=== PATIENT | female | born 1965 | race Caucasian/White ===

== ENCOUNTER → 2024-08-19 13:47 | Outpatient (REF) | payer BC, SELFPAY | LOC: HWRCS 13:47 | PROVIDERS: ATTENDING PHYSICIAN Internal Medicine Cardiovascular Disease; FAMILY PHYSICIAN Internal Medicine | DX: Z95.0 Presence of cardiac pacemaker (principal) | CPT/HCPCS: 93306 ==

== ENCOUNTER → 2024-12-30 11:31 | Outpatient (REF) | payer BC, SELFPAY | LOC: HWRAD 11:31 | PROVIDERS: ATTENDING PHYSICIAN Nurse Practitioner Primary Care | DX: M85.89 Other specified disorders of bone density and structure, multiple sites (principal) | CPT/HCPCS: 77080 ==

== ENCOUNTER → 2025-09-09 11:13 | Outpatient (REF) | payer BC, SELFPAY | LOC: HWRCS 11:13 | PROVIDERS: ATTENDING PHYSICIAN Internal Medicine Cardiovascular Disease; FAMILY PHYSICIAN Nurse Practitioner Primary Care | DX: R55 Syncope and collapse (principal); I47.10 Supraventricular tachycardia, unspecified | CPT/HCPCS: 93306 ==

== ENCOUNTER 2025-09-16 06:25 | Day surgery (SDC) | payer BC, SELFPAY ==
[2025-09-16 06:39] VITALS: BMI 21.2
[2025-09-16 07:13] VITALS: BP 118/70
[2025-09-16 08:50] VITALS: BP 112/73
[2025-09-16 09:04] VITALS: BP 109/72
[2025-09-16 09:19] VITALS: BP 109/70
[2025-09-16 09:34] VITALS: BP 109/65
[2025-09-16 09:49] VITALS: BP 106/76
--- NOTE | 2025-09-16 10:00 | ITS.CL.PACE ---
Business Management Manager - Pacemaker Implant
Pacemaker Implant
Procedure Report:
Date of Procedure: September 16, 2025.
Procedures: Dual chamber pacemaker generator change. Pacemaker pulse generator explantation and pacemaker pulse generator implantation.
Indication: Pacemaker at [place] from natural battery depletion. 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
Performing physician: Thee Disla MD, [facility].
Implant: Pacemaker Pulse Generator: Medtronic; Model# W1DR01; Serial# [id number].
Explanted Pacemaker Pulse Generator (Implanted in [place] on 09/07/2012): Medtronic; Model# [id number]; Serial# [id number].
Retained RA Lead (Implanted 09/07/2012): [employer]: Model# [id number]; Serial# [id number].
Retained RV Lead (Implanted 09/07/2012): Medtronic; Model# 5076-52cm; Serial# [id number].
Technique: A time out was performed. The procedure site was identified. The patient was anesthetized by the anesthesia service. Preoperative cefazolin was administered before the skin incision. The patient was prepped and draped in the usual
fashion. Local anesthetic was applied to the left prepectoral subcutaneous tissue. A 3 inch incision was made over the pulse generator. The capsule was entered with Bovie cautery. The old pacemaker pulse generator was explanted. No Bovie cautery was
applied to the lead system. The leads were appropriately attached to the new device. The pocket was irrigated with antibiotic solution. Hemostasis was excellent. The device and leads were placed in the pocket. The incision was closed in three layers
with absorbable suture. Steri-strips and a silver impregnated dressing were applied. The estimated blood loss was 2 mL. There were no complications. No fluoroscopy.
Lead Analysis:
RA lead: P: 2.8 mV; Threshold: 0.5 V @ 0.4 ms; Impedance:437 ohms.
RV lead: R: 13 mV; Threshold: 1.2 V @ 0.4 ms; Impedance: 380 ohms.
Final Programming: MVP (DDD <=> AAI) 40 - 140 bpm. Rate drop ON.
Conclusion:
1. Uncomplicated Medtronic pacemaker change.
2. Each component of the pacing system is MRI conditional.
3. The configuration with one [employer] lead and one lead with a Medtronic pulse generator is not currently labeled by the FDA as MRI conditional.
4. Many larger MRI facilities will perform off label MRIs following strict protocols.
Recommendation: Routine post pacemaker care.
cc: TRUDI Mohamud.
== END 2025-09-16 10:00 | disposition home or self-care (01) ==
LOC: CATH 06:25
PROVIDERS: ATTENDING PHYSICIAN Internal Medicine Cardiovascular Disease; FAMILY PHYSICIAN Nurse Practitioner Primary Care
DX: Z45.010 Encounter for checking and testing of cardiac pacemaker pulse generator [battery] (principal); I49.5 Sick sinus syndrome; I47.10 Supraventricular tachycardia, unspecified; Z88.1 Allergy status to other antibiotic agents; Z88.2 Allergy status to sulfonamides; R55 Syncope and collapse
CPT/HCPCS: 33228; C1785

== ENCOUNTER → 2025-11-14 08:54 | Outpatient (REF) | payer BC, SELFPAY | LOC: HWWDC 08:54 | PROVIDERS: FAMILY PHYSICIAN Nurse Practitioner Primary Care | DX: Z12.31 Encounter for screening mammogram for malignant neoplasm of breast (principal) | CPT/HCPCS: 77063; 77067 ==